=== PATIENT | male | born 1980 | race Caucasian/White ===

== ENCOUNTER 2017-04-09 00:39 | Emergency (ER) | payer OTHER ==
[2017-04-09 00:56] VITALS: TEMP 97.9
--- NOTE | 2017-04-09 01:25 | RAD ---
EXAM DESCRIPTION: Ankle,Right 2 Views CLINICAL HISTORY: deformity after trauma COMPARISON: None. FINDINGS: 2 views of the right ankle. Acute spiral fracture of the distal right tibial diaphysis. Acute comminuted fracture of the distal fibular diaphysis above the level of the ankle mortise. Soft tissue edema. Normal osseous mineralization. IMPRESSION: 1. Acute mildly displaced spiral fracture of the distal right tibial diaphysis. 2. Acute comminuted fracture of the distal fibular diaphysis above the level of the ankle mortise. Electronically signed by: Dionte Love 04/09/2017 1:23 AM [facility]
[2017-04-09] MEDS ORDERED: HYDROcodone 7.5MG/APAP 325MG 1 EA TAB ONE (01:27)
[2017-04-09] MEDS ORDERED: HYDROcodone 7.5MG/APAP 325MG 1 EA TAB PO ONE (01:34)
--- NOTE | 2017-04-09 01:52 | ED.PDOC ---
History of Present Illness - General Chief Complaint: Lower Extremity Injury Stated Complaint: right ankle injury Time Seen by Provider: 04/09/17 00:45 Source: patient Exam Limitations: no limitations - History of Present Illness Initial Comments: he patient is a 36-year-old male presenting to the emergency room secondary to pain in his right ankle after wrestling with his brother. He noted some swelling and could not get his boot off. This occurred 2-3 hours before arrival. No previous injury to that ankle. Timing/Duration: 1-3 hours Severity: severe Improving Factors: immobilization Worsening Factors: movement Associated Symptoms: denies symptoms Allergies/Adverse Reactions: Allergies Amoxicillin [From Augmentin] Allergy (Verified 08/20/14 13:08) Clavulanic Acid [From Augmentin] Allergy (Verified 08/20/14 13:08) Home Medications: Ambulatory Orders Dexlansoprazole [Dexilant] 60 mg PO DAILY 08/20/14 Glbgsnnriafhh-Yxzn-Jbsnnoviku [Fioricet] 1 ea PO Q4HR PRN #60 tab 04/09/17 Review of Systems - Review of Systems Constitutional: States: no symptoms reported EENTM: States: no symptoms reported Respiratory: States: no symptoms reported Cardiology: States: no symptoms reported Gastrointestinal/Abdominal: States: no symptoms reported Genitourinary: States: no symptoms reported Musculoskeletal: States: see HPI Skin: States: no symptoms reported Neurological: States: no symptoms reported Endocrine: States: no symptoms reported Hematologic/Lymphatic: States: no symptoms reported All other Systems: No Change from Baseline Past Medical History (General) - Patient Medical History Hx Seizures: No Hx Stroke: No Hx Dementia: No Hx Asthma: No Hx of COPD: No Hx Cardiac Disorders: No Hx Congestive Heart Failure: No Hx Pacemaker: No Hx Hypertension: No Hx Thyroid Disease: No Hx Diabetes: No Hx Gastroesophageal Reflux: No Hx Renal Disease: No Hx Cancer: No Hx of HIV: No Hx Hepatitis C: No Hx MRSA: No Surgical History: no surgical history - Vaccination History Hx Tetanus, Diphtheria Vaccination: No Hx Influenza Vaccination: No - Social History Hx Alcohol Use: Yes - social Family Medical History - Family History Mother Family History: Unknown Physical Exam - Physical Exam General Appearance: Alert, No apparent distress Eye Exam: bilateral normal Ears, Nose, Throat: hearing grossly normal Neck: full range of motion Respiratory: no respiratory distress, no accessory muscle use Cardiovascular/Chest: normal peripheral pulses, no edema, tachycardia Peripheral Pulses: radial,right: 2+, radial,left: 2+, dorsalis pedis,right: 2+, dorsalis pedis,left: 2+, posterior tibialis,right: 2+, posterior tibialis,left: 2+ Gastrointestinal/Abdominal: soft Rectal Exam: deferred Extremity: other - there is some shortening and external rotation of the left lower leg just above the ankle. Sensation is preserved. Pulses are preserved. Neurologic: [employer] II-XII nml as tested, no motor/sensory deficits, alert, normal mood/affect, oriented x 3 Skin Exam: normal color Comments: Vital Signs - 24 hr 04/09/17 00:44 Temperature 97.9 F Pulse Rate [ 120 H monitor] Respiratory 16 Rate Blood Pressure 126/87 [Left Arm] O2 Sat by Pulse 99 Oximetry Progress - Progress Progress: 04/09/17 01:52 the patient is a 36-year-old male presenting with an acute fracture of the lower leg on the right side. X-ray shows a spiral fracture of the distal right tibia that does not extend into the joint. He also has a comminuted fracture of the distal right fibula at the level of the ankle joint. No skin laceration. He does appear neurovascularly intact at this time after splinting. A long splint was placed. Crutches will be used for ambulation. He needs to follow up with orthopedics as soon as possible this coming week to arrange for surgical repair which will be necessary. The patient can use Fioricet and ibuprofen for pain control. ER warnings were given for any significant worsening. Departure - Departure Clinical Impression: Fracture, tibia and fibula Qualifiers: Encounter type: initial encounter Fracture type: closed Laterality: right Qualified Code(s): S82.201A - Unspecified fracture of shaft of right tibia, initial encounter for closed fracture; S82.401A - Unspecified fracture of shaft of right fibula, initial encounter for closed fracture Disposition: Discharge to Home or Self Care Condition: Fair Departure Forms: ED Discharge - Pt. Copy, Patient Portal Self Enrollment Instructions: DI for Shinbone Fracture Diet: regular diet Activity: no pushing/pulling with affected limb, other - Crutches Referrals: Ra Eaton MD [Primary Care Provider] - 1-5 Days Prescriptions: Qhaeezxbqrora-Mioi-Lohhjxplgr [Fioricet] 1 ea PO Q4HR PRN #60 tab PRN Reason: Pain Home Medications: Ambulatory Orders Dexlansoprazole [Dexilant] 60 mg PO DAILY 08/20/14 Taooejhmxozva-Mgdz-Furwtyipiw [Fioricet] 1 ea PO Q4HR PRN #60 tab 04/09/17 Additional Instructions: the patient is a 36-year-old male presenting with an acute fracture of the lower leg on the right side. X-ray shows a spiral fracture of the distal right tibia that does not extend into the joint. He also has a comminuted fracture of the distal right fibula at the level of the ankle joint. No skin laceration. He does appear neurovascularly intact at this time after splinting. A long splint was placed. Crutches will be used for ambulation. He needs to follow up with orthopedics as soon as possible this coming week to arrange for surgical repair which will be necessary. The patient can use Fioricet and ibuprofen for pain control. ER warnings were given for any significant worsening.
[2017-04-09] MEDS ORDERED: HYDROCOD/APAP 5/325 (ER DISP) #3 TAB PO ONE ×2 (01:59→02:01)
[2017-04-09 02:23] VITALS: BP 122/82; O2SAT 100
== END 2017-04-09 02:23 | disposition home or self-care (01) ==
LOC: ER 00:39
DX: S82.301A Unspecified fracture of lower end of right tibia, initial encounter for closed fracture (principal); S82.831A Other fracture of upper and lower end of right fibula, initial encounter for closed fracture; X58.XXXA Exposure to other specified factors, initial encounter; Y93.83 Activity, rough housing and horseplay; Y92.9 Unspecified place or not applicable

== ENCOUNTER → 2018-06-06 | Outpatient (CLI) | payer OTHER | LOC: GMAJ 16:53 | PROVIDERS: ATTEND Family Medicine | DX: R10.84 Generalized abdominal pain (principal) ==

== ENCOUNTER 2018-06-07 09:39 | Observation (INO) | payer OTHER ==
--- NOTE | 2018-06-07 09:49 | HP ---
CHIEF COMPLAINT: Stones in the gallbladder and infection. HISTORY OF PRESENT ILLNESS: Mr. Mendez is a 37-year-old gentleman who had developed right upper quadrant pain a couple of days ago, requiring a visit to the clinic. At the clinic, the patient obtained lab work as well as an ultrasound which indicated the patient had active cholelithiasis as well as a thickened gallbladder wall. He was directly admitted to the hospital by Dr. Eaton at [facility]. Dr. Eaton requests Dr. Pemberton's consultation in order to assess for possibly cholecystectomy In the room, the patient endorses he is currently not in pain this morning, it had resolved sometime yesterday. He has not eaten anything other than a little bit of orange juice this morning. Otherwise, no symptoms or complaints. PAST MEDICAL HISTORY: 1. Chronic gastroesophageal reflux disease with hiatal hernia. PAST SURGICAL HISTORY: 1. Right lower leg fracture repair. CURRENT MEDICATIONS: 1. Dexilant. 2. Fioricet p.r.n. ALLERGIES: AUGMENTIN. FAMILY HISTORY: History of carcinoma of the colon and of the cervix in his family members. SOCIAL HISTORY: The patient is an oil heaterman, is currently . He drinks very minimally, only socially. He does not use oral tobacco or smoke at all. REVIEW OF SYSTEMS: The patient denies any current right upper quadrant or abdominal pain, normal bowel movement was yesterday, urinating normally, denies any fevers or chills, denies any chest pain or shortness of breath, no joint pain or muscle pain currently. PHYSICAL EXAMINATION: GENERAL: The patient is awake, cooperative, in good spirits. NECK: No tenderness, no lymphadenopathy. CHEST: Lungs clear to auscultation bilaterally, no crackles or wheezes. ABDOMEN: Nontender to palpation, no hepatomegaly appreciated, normal bowel sounds, no Rockwell's or rebound. EXTREMITIES: Normal pulses, no deficits. LABORATORY: Sodium 137, potassium 4.4, chloride 102, carbon dioxide 27. BUN 20, creatinine 1.04. AST mildly elevated at 87, ALT greatly elevated at 234, alkaline phosphatase 94, total bilirubin 0.9. IMAGING: Ultrasound per verbal report from Dr. Pemberton, stones seen in the gallbladder with evidence of thickened gallbladder wall. ASSESSMENT: 1. Cholelithiasis with thickened gallbladder wall with concerns for cholecystitis. 2. Chronic gastroesophageal reflux disease, currently on proton pump inhibitor. 3. Elevated liver function tests. PLAN: We are admitting the patient to undergo cholecystectomy today with Dr. Pemberton. He has elevation of liver enzymes and a history of right upper quadrant pain as well as reported fatty liver disease. He is currently awaiting a liver biopsy to confirm this. Given his picture and his chronic problems, Dr. Pemberton has opted to remove the gallbladder. According to the patient, he has had an EGD in the recent past by Dr. Eaton which showed no evidence of Flanagan's esophagus. We will keep him NPO until the procedure and will follow him up postoperatively. After speaking with Dr. Pemberton, if the patient is stable and doing well after the operation, he may be able to be discharged today, 06/07/18. We will monitor him for stability and followup on hospital discharge. [facility][id number] [facility]
[2018-06-07] MEDS ORDERED: LIDOCAINE 1% 10 ML VIAL INJ ONE (10:00)
[2018-06-07] MEDS ORDERED: DEXAMETHASONE INJ 10 MG/ML VIAL IV ONE (10:00)
[2018-06-07] MEDS ORDERED: METOCLOPRAMIDE HCL INJ 10 MG/2 ML VIAL IV ONE (10:00)
[2018-06-07] MEDS ORDERED: PROPOFOL 200 MG/20 ML VIAL IV ONE (10:00)
[2018-06-07] MEDS ORDERED: raNITIdine HCL INJ 25 MG/ML VIAL IV ONE (10:00)
[2018-06-07] MEDS ORDERED: KETOROLAC TROMETHAMINE INJ 30 MG/ML VIAL IV ONE (10:00)
--- NOTE | 2018-06-07 10:28 | CONS ---
DATE OF CONSULTATION: 06/07/18 HISTORY OF PRESENT ILLNESS: The patient is a 37-year-old male who developed severe right upper quadrant pain yesterday. It continued this morning. He was made NPO overnight and underwent an ultrasound this morning which revealed thickened gallbladder wall with stones. He was directly admitted by Dr. Eaton to the hospitalist service. I am seeing him for consideration for cholecystectomy. PAST MEDICAL HISTORY: 1. Gastroesophageal reflux disease with hiatal hernia. MEDICATIONS: 1. Zegerid daily. ALLERGIES: AUGMENTIN. FAMILY HISTORY: Positive for carcinoma of the colon, carcinoma of the cervix. He specifically denies problems with anesthesia or history of diabetes in the family. SOCIAL HISTORY: The patient is and works in the oil field. He drinks minimally. He does not smoke, but uses oral tobacco. REVIEW OF SYSTEMS: The patient denies weight loss, history of hepatitis or jaundice. He denies blood per rectum, bloody vomitus or melanotic stools. He denies urinary tract symptoms. He denies fever, chest pain, shortness of breath or productive cough. PHYSICAL EXAMINATION: GENERAL: The patient is awake, alert, cooperative, in mild to moderate distress. VITAL SIGNS: The patient is currently afebrile, normotensive. HEENT: Sclerae nonicteric. Mucous membranes moist. NECK: Without adenopathy. BACK: Without CVA tenderness. CHEST: Equal breath sounds bilaterally. ABDOMEN: Soft. There is tenderness in the right upper quadrant with mild guarding. No discrete mass. RECTAL: Deferred. EXTREMITIES: Without cyanosis, clubbing or edema. LABORATORY: Urinalysis reveals +1 bilirubin, specifically gravity 1.020, otherwise clear. White count was 6,100 with 69% neutrophils. Hemoglobin 16.6, platelet count 285,000. Liver functions revealed bilirubin 1.4. AST and ALT are elevated at 275 and 349. Potassium 3.8, sodium 143, creatinine 1.1. H. pylori was negative. Amylase 77, which is normal. Abdominal x-ray was unremarkable. Ultrasound, however, revealed thickened gallbladder wall with gallstones, no significant pericholecystic fluid and there was not a positive Rockwell's sign. ASSESSMENT: 1. Cholecystitis. 2. Cholelithiasis. 3. Fatty infiltration of the liver. PLAN: The plan at this point is for laparoscopic cholecystectomy today with intraoperative cholangiography using fluoroscopy followed by wedge biopsy of right lobe of the liver. Risks, benefits and alternatives to these procedures were discussed with the patient in the presence of his . They are agreed and their questions were answered. #[id number] [facility]
[2018-06-07] MEDS ORDERED: LACTATED RINGERS 1,000 ML IVS PRN (10:41)
[2018-06-07] MEDS ORDERED: levoFLOXacin 750MG IV 750 MG in PREMIX BAG 1 BAG IVPB SCH (11:00)
[2018-06-07] MEDS ORDERED: SODIUM CHLORIDE 0.9% (FLUSH) 10 ML SYG IV PRN (11:15)
[2018-06-07] MEDS ORDERED: IV SET AND CAP CHANGE INJ INJ SCH (11:30)
[2018-06-07] MEDS ORDERED: MIDAZOLAM INJ 2 MG/2 ML VIAL ONE (13:03)
[2018-06-07] MEDS ORDERED: ROCURONIUM BROMIDE 10 MG/ML VIAL ONE (13:04)
[2018-06-07] MEDS ORDERED: fentaNYL CITRATE INJ 50 MCG/ML AMP ONE (13:04)
[2018-06-07] MEDS ORDERED: BUPIVACAINE 0.25% W/EPI 50 ML VIAL INJ ONE (13:06)
[2018-06-07] MEDS ORDERED: HEPARIN SODIUM (PORCINE) 10,000 UNITS/ML VIAL ONE (13:06)
[2018-06-07] MEDS ORDERED: HYDROmorphone HCL INJ 2 MG/ML VIAL ONE (14:19)
[2018-06-07] MEDS ORDERED: ELECTROLYTE-A 1,000 ML IVS ONE (14:37)
--- NOTE | 2018-06-07 14:58 | RAD ---
EXAM DESCRIPTION: Fluoroscopy Up to 1Hr CLINICAL HISTORY: IOC intraoperative cholangiogram. Cholelithiasis. COMPARISON: None. IMPRESSION: Spot fluoroscopic intraoperative views of the abdomen are obtained for intraoperative cholangiogram. Exam shows good opacification of the intra and extrahepatic biliary ductal system. No persistent filling defects are seen in the common bile duct. Contrast is seen in the duodenum. The distal common bile duct is not entirely included in [id number]. Less than 30 seconds of intraoperative fluoroscopy time was utilized. No extra exposure images are obtained. Electronically signed by: Yung Alvarez MD 06/07/2018 2:55 PM [facility]
[2018-06-07] MEDS ORDERED: SUGAMMADEX SODIUM 200 MG/2 ML VIAL IV ONE (15:07)
[2018-06-07] MEDS ORDERED: ONDANSETRON INJ 4 MG/2 ML VIAL IV PRN (15:23)
[2018-06-07] MEDS ORDERED: HYDROcodone 5MG/APAP 325MG 1 EA TAB PO PRN (15:23)
[2018-06-07] MEDS ORDERED: HYDROmorphone HCL INJ 2 MG/ML VIAL IV PRN (15:23)
--- NOTE | 2018-06-07 16:38 | OP ---
DATE OF PROCEDURE: 06/07/18 PREOPERATIVE DIAGNOSIS: 1. Cholelithiasis. 2. Cholecystitis. 3. Fatty infiltration of the liver. POSTOPERATIVE DIAGNOSIS: 1. Cholelithiasis. 2. Acute cholecystitis. 3. Fatty infiltration of the liver. SURGICAL PROCEDURE: 1. Laparoscopic cholecystectomy with intraoperative cholangiography. 2. Wedge biopsy right lobe of the liver. SURGEON: James Pemberton M.D. FACILITIES SUPERVISOR: None. ANESTHESIA: General endotracheal and local infiltration 0.25% Marcaine with epinephrine. INDICATION FOR SURGERY: The patient is a 37 year-old male who developed severe right upper quadrant pain yesterday. He was seen by Dr. Eaton and found to have elevated liver functions. He felt that the patient likely had a biliary problem. He ordered an ultrasound this morning which revealed a very thickened gallbladder wall and gallstones. He was admitted to observation by the hospitalist service directly from Dr. Eaton' office. I saw him in consultation. After we over the risks, benefits, and alternatives to laparoscopic cholecystectomy, including the wedge biopsy of the liver with the patient and his , we decided to proceed today after their questions were answered. FINDINGS AT TIME OF PROCEDURE: The gallbladder wall was thickened and edematous. There were several small stones. Intraoperative cholangiogram revealed free flow into the duodenum with no filling defects or strictures noted. No other pathology was noted. DESCRIPTION OF PROCEDURE: After adequate general endotracheal anesthesia was obtained, the patient was prepped and draped in the usual sterile manner in the supine position. A surgical time out was taken. It was noted that the patient had been given a dose of Levaquin preoperatively. The infraumbilical area was infiltrated with local anesthesia. Curvilinear incision was fashioned with a sharp knife. Dissection was carried down through the skin and subcutaneous tissue to the midline fascia. Traction sutures were placed on either side of the midline. A small incision was made in the midline fascia and the peritoneum was opened bluntly. Kathleen trocar was introduced under direct vision into the abdominal cavity and fixed in place with the 20 mL balloon. When this was done, CO2 was then insufflated until a pressure of 12 mmHg was reached and the abdomen was tympanitic in all four quadrants. When this was done, the laparoscope was introduced. The abdomen was inspected with the previously noted findings. The patient was then placed in reverse Trendelenburg position, turned to the left side. The upper abdominal ports were placed under direct vision. The gallbladder was grasped, retracted anteriorly and laterally. The neck of the gallbladder was retracted laterally. The triangle of Calot was then explored with the cystic duct and cystic artery identified and isolated. The cystic duct was hemoclipped once proximally. The cystic artery was hemoclipped twice proximally and once distally. A small incision was made in the cystic duct. The cholangiogram catheter was introduced through a separate stab wound in the right upper quadrant, introduced into the cystic duct and clipped in place. Cholangiograms were then taken using fluoroscopy which revealed free flow into the duodenum with no filling defects or strictures noted. When this was done, the cystic duct catheter was removed. The cystic duct was hemoclipped three times distally and divided between the hemoclips. The cystic artery was divided. The gallbladder was then dissected free from the gallbladder bed of the liver using electrocautery. It was removed from the infraumbilical port site in the usual manner under direct vision. When this was done, the subhepatic space was irrigated. The effluent was noted to be clear. At this point the wedge biopsy in the right lobe of the liver was performed medial to the gallbladder bed with sharp scissors. The specimen was removed from the field and sent for pathological evaluation. At this point, cautery was turned up to 40 and the biopsy site was easily controlled hemostasis with electrocautery. The subhepatic space and subphrenic space were then irrigated copiously with saline. The effluent was noted to be clear. Again the gallbladder bed of the liver and the [facility] Hepatis and the biopsy site revealed excellent hemostasis. There was no bile leak identified at the [employer], so at this time the upper abdominal ports were removed under direct vision. The lateral and medial port sites both oozed and required cautery for hemostasis. When these were all stabilized, the CO2, the laparoscope and the infraumbilical port were removed. The infraumbilical port site fascia was approximated with a single [id number] suture of 0 Vicryl. Subcutaneous tissue was irrigated with saline. Skin edges were approximated with 4-0 Vicryl subcuticular sutures, benzoin and Steri-Strips. Sterile dressings were applied. The patient was awakened and taken to the Recovery Room in good and stable condition. Estimated blood loss was approximately 25 to 50 mL. All sponge, needle and instrument counts were correct. #[id number] [facility]
[2018-06-07 17:37] VITALS: TEMP 97.8
[2018-06-07 19:19] VITALS: BP 142/82; O2SAT 98
== END 2018-06-07 19:30 | disposition home or self-care (01) ==
LOC: ER 09:39 → EDSTATUS 09:47 → MS 09:48
PROVIDERS: ADMIT Family Medicine; ATTEND Family Medicine
DX: K80.12 Calculus of gallbladder with acute and chronic cholecystitis without obstruction (principal); K76.0 Fatty (change of) liver, not elsewhere classified; K21.9 Gastro-esophageal reflux disease without esophagitis; K44.9 Diaphragmatic hernia without obstruction or gangrene; F17.220 Nicotine dependence, chewing tobacco, uncomplicated; Z79.899 Other long term (current) drug therapy; Z88.0 Allergy status to penicillin; Z80.0 Family history of malignant neoplasm of digestive organs; Z80.49 Family history of malignant neoplasm of other genital organs
CPT/HCPCS: 96374; J3010; J1644; J1170; J1885; J2765; J3490; J1100; J2250; J2780; J1956; J7120; 80053; 36415; 76000; 94760; G0378; 47563; 47379; 00790

== ENCOUNTER → 2019-02-10 | Outpatient (CLI) | payer OTHER ==
--- NOTE | 2019-02-10 12:19 | US ---
EXAM DESCRIPTION: Soft Tissue,Head/Neck: ULTRASOUND. CLINICAL HISTORY: 38 years Male LOCALIZED SWELLING, MASS AND LUMP COMPARISON: Ultrasound neck soft tissues 04 February 2014. TECHNIQUE: Transcutaneous scanning: Solomon-scale and Doppler modes. FINDINGS: Palpable mass right submandibular region scanning. Hypoechoic mass with small echogenic region measures 2.2 x 1.7 x 1.0 cm. Circumscribed margins, wider than tall orientation, and posterior acoustic enhancement. Vascular pedicle involving the echogenic hilum in the cortex of the lymph node. Second mass in the adjacent soft tissues, appears almost completely hypoechoic with circumscribed margins measuring 1.7 x 1.7 x 1.1 cm. Wider than tall orientation and posterior acoustic enhancement. 2 additional masses in the fatty layer are almost completely hypoechoic with circumscribed margins wider than tall orientation and posterior acoustic enhancement. Minimal vascularity. Dimensions are 1. 7 and 1.4 cm. No echogenic region. No distinct cyst on the left or large calcifications. Scanning fatty tissues in the left submandibular region hypoechoic mass measuring 1.7 x 0.6 cm with circumscribed margins, wider than tall orientation, posterior acoustic shadowing, and vascular. No echogenic region. No distinct cyst or large calcifications on the left. IMPRESSION: 1. Bilateral reactive lymph nodes in the submandibular region. More nodes and larger nodes on the right. No distinct cysts or calcifications. Nodes on the right appear similar to the nodes seen on the prior study. Electronically signed by: Angel Polanco MD 02/10/2019 12:17 PM [facility]
== END ==
LOC: US 08:02
PROVIDERS: ATTEND Family Medicine
DX: R59.9 Enlarged lymph nodes, unspecified (principal)

== ENCOUNTER → 2019-02-19 | Outpatient (CLI) | payer OTHER ==
--- NOTE | 2019-02-19 12:59 | CT ---
EXAM DESCRIPTION: Soft Tissue Neck w/Contrast (accession [id number]), Maxillofacial w/wo Contrast (accession [id number]): Computed Tomography CLINICAL HISTORY: 38 years Male, GENERALIZED ENLARGED LYMPH NODES COMPARISON: None. TECHNIQUE: Spiral, axial 2.5 x 2.5 scans through the neck soft tissues and maxillofacial structures before and after infusion of 75 mL Optiray 320 nonionic IV contrast same scans with bony algorithm through the maxillofacial bones. Sagittal and coronal 2.0 mm reconstructions, maxillofacial bones and neck. No adverse reactions. Total Exam DLP: 1597.29 mGy-cm. This exam was performed according to our departmental CT dose-optimization program which includes automated exposure control, adjustment of the mA and/or kV according to patient size and/or use of iterative reconstruction technique; to reduce radiation dose to as low as reasonably achievable (ALARA). FINDINGS: Nasopharynx, oropharynx, and hypopharynx, is symmetric with no effacement or displacement. No abnormal enhancement in the soft tissues. Multiple, bilateral parapharyngeal nodes superior to the bilateral submandibular glands which are symmetric in size and enhancement. Largest left lymph node is 1 cm and 11 mm on the right. These are anterior to the parotid glands. Left parotid gland is larger than the right, with bilateral unremarkable enhancement. Largest lymph node in the right carotid space is 11 x 9 mm, 11 x 7 mm on the left. Multiple lymph nodes anterior and lateral to the submandibular glands. Largest 1.5 x 1.2 cm on the right and 2.2 x 1.0 cm on the left. These are impressing upon the subcutaneous fascia, with no masses in the subcutaneous adipose tissue except for small 4 mm enhancing nodule lateral to the inferior left parotid gland. 1.2 x 0.7 cm node in the right paracervical space and 9 x 7 mm node in the left paracervical space. Symmetric appearance of the sublingual glands abutting the anterior mandible. The larynx and glottis appear symmetric with no effacement or displacement. No abnormal enhancement of the adjacent mucosa. Small subcentimeter nonenhancing nodules inferior poles of the thyroid gland, otherwise normal enhancement. No soft tissue nodes or nodules around the thyroid gland are in the included supraclavicular or infraclavicular soft tissue. Normal enhancement and density of the included upper mediastinum. Bilateral apical pleural thickening more on the left than the right. Emphysematous changes in the included lung parenchyma with focal pleural thickening. 4 mm subpleural nodule or focal pleural thickening posterior right lung. 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 No obvious disc bulging or herniation or canal or foraminal stenosis. Paranasal sinuses are well aerated with no soft tissue masses or air-fluid levels. Bilateral ostiomeatal units are patent. Nasal septum is in the midline. Minimal turbinate mucosal hypertrophy. Mid nasal passageway narrowing on the right by septal spur. Nasal bones and anterior maxillary spine are unremarkable. Mastoid air cells are prominent with no soft tissue mass or air-fluid level. Minimal and inner ear structures are grossly normal. Soft tissues posterior to the paranasal sinuses are symmetric size and enhancement. Symmetric appearance and enhancement of the orbital soft tissues including optic globes and extraocular muscles. IMPRESSION: 1. Multiple enlarged lymph nodes in the bilateral parapharyngeal space, bilateral carotid space, abutting the bilateral submandibular glands. Relatively symmetric. No soft tissue mass or asymmetry of the airway from the nasopharynx to the glottis. No other soft tissue mass or abnormal enhancement. Left parotid gland is larger than the right parotid gland, but no focal abnormal enhancement or mass, 2. Subcentimeter incidental thyroid nodules. No follow-up imaging is recommended. Reference: J Am Maryjane Radiol. 2015 b;12(2): 143-50. 3. 4 mm subpleural nodule versus focal pleural thickening posterior right lung with bilateral pleural thickening in the included lung tissue. Consider optional follow-up noncontrast chest CT scan within a 12 month interval. 4. No significant paranasal sinus disease. Ostiomeatal units are intact bilaterally. Right side mid septal spur narrowing the right nasal passageway. Electronically signed by: Angel Polanco MD 02/19/2019 12:57 PM [employer]
== END ==
LOC: CT 08:37
PROVIDERS: ATTEND Family Medicine
DX: R59.1 Generalized enlarged lymph nodes (principal); J32.9 Chronic sinusitis, unspecified; K11.1 Hypertrophy of salivary gland; E04.2 Nontoxic multinodular goiter; R91.8 Other nonspecific abnormal finding of lung field; J34.89 Other specified disorders of nose and nasal sinuses